=== PATIENT | male | born 1970 | race Caucasian/White ===

== ENCOUNTER 2018-09-21 14:08 | Emergency (ER) | payer OTHER ==
[~2018-09-21] VITALS: Ht 175.3 cm; Wt 95.3 kg
[2018-09-21] MEDS ORDERED: KEFLEX500 M1 PO (16:13)
[2018-09-21 18:42] VITALS: BP 137/84
== END 2018-09-21 17:45 | disposition home or self-care (01) ==
LOC: ER 14:08
DX: S51.812A Laceration without foreign body of left forearm, initial encounter (principal); W31.2XXA Contact with powered woodworking and forming machines, initial encounter; Y92.89 Other specified places as the place of occurrence of the external cause; Y99.0 Civilian activity done for income or pay; Y99.8 Other external cause status